=== PATIENT | female | born 1945 | race Caucasian/White ===

== ENCOUNTER 2019-06-09 18:50 | Observation (INO) | payer MEDICARE, OTHER ==
[~2019-06-09] VITALS: Ht 157.5 cm; Wt 73.0 kg
--- NOTE | 2019-06-09 19:09 | REPVR ---
EXAM: CT Head Without Contrast EXAM DATE/TIME: 06/09/2019 6:57 PM CLINICAL HISTORY: 74 years old, female; Speech disturbance; Slurred speech; Additional info: CVA - nursing interventions must not delay CT TECHNIQUE: Imaging protocol: Computed tomography images of the head without contrast. Radiation optimization: All CT scans at this facility use at least one of these dose optimization techniques: automated exposure control; mA and/or kV adjustment per patient size (includes targeted exams where dose is matched to clinical indication); or iterative reconstruction. Other technique: STROKE PROTOCOL was implemented. COMPARISON: No relevant prior studies available. FINDINGS: Brain: No intracranial mass, mass effect or midline shift. No acute intracranial hemorrhage. No CT evidence of acute cortical infarct. Ventricles: Ventricles, cisterns, and sulci are normal in size for age. Bones/joints: No calvarial fracture or destructive process. Sinuses: Imaged paranasal sinuses are clear. Mastoid air cells: Mastoid air cells are normally aerated. Orbits: Imaged orbits are unremarkable. Soft tissues: No focal extracranial soft tissue swelling. IMPRESSION: No acute or concerning focal intracranial abnormality. ASSESSMENT: ASPECTS (Eva Stroke Program Early CT Score) is 10 Electronically signed by: Lev Tejeda On 06/09/2019 19:08:28 PM
[2019-06-09 19:31] LABS: BASO # 0.1 10^3/uL (0.0-0.2); BASO % 0.6 % (0.0-1.0); EOS # 0.2 10^3/uL (0.0-0.50); EOS % 2.2 % (0.0-3.0); HEMATOCRIT 35.9 % (36.0-47.0); HEMOGLOBIN 12.3 g/dl (12.0-15.5); LYMPH # 2.3 10^3/uL (1.5-4.5); LYMPH % 29.5 % (24.0-44.0); MEAN CORPUSCULAR HEMOGLOBIN 31.7 pg (27.0-33.0); MEAN CORPUSCULAR HGB CONC 34.3 g/dl (32.0-36.5); MEAN CORPUSCULAR VOLUME 92.5 fl (80.0-96.0); MONO # 0.9 10^3/uL (0.0-0.8); MONO % 10.9 % (0.0-5.0); NEUTROPHILS # 4.4 10^3/uL (1.8-7.7); NEUTROPHILS % 56.5 % (36.0-66.0); PLATELET COUNT, AUTOMATED 312 10^3/uL (150-450); RED BLOOD COUNT 3.88 10^6/uL (4.00-5.40); WHITE BLOOD COUNT 7.8 10^3/uL (4.0-10.0)
[2019-06-09 19:43] LABS: INR 0.94; PROTHROMBIN TIME 12.3 SECONDS (11.8-14.0)
[2019-06-09 19:44] LABS: PARTIAL THROMBOPLASTIN TIME 31.6 SECONDS (25.0-38.4)
--- NOTE | 2019-06-09 19:46 | REP ---
Portable chest, 07:08 p.m., single frontal view: Comparison is the PA and lateral chest of 05/21/2013. The lung mishra are clear. The cardiac size is normal. The amol, mediastinum, and skeletal structures are unremarkable. Impression: Negative portable chest. There is no interval change. Electronically Signed by Lucio Castillo MD 06/09/2019 07:37 P
[2019-06-09 20:02] LABS: BLOOD UREA NITROGEN 18 MG/DL (7-18); CALCIUM LEVEL 8.9 MG/DL (8.8-10.2); CARBON DIOXIDE LEVEL 28 MEQ/L (21-32); CHLORIDE LEVEL 104 MEQ/L (98-107); CK-MB VALUE MASS 1.6 NG/ML (<3.6); CPK CREATINE PHOSPHOKINASE 104 U/L (26-192); CREATININE FOR GFR 1.06 MG/DL (0.55-1.30); GLOMERULAR FILTRATION RATE 53.8 (>39); GLUCOSE, FASTING 103 MG/DL (70-100); MB/CK RELATIVE INDEX 1.54 (< OR =4); POTASSIUM SERUM 3.9 MEQ/L (3.5-5.1); SODIUM LEVEL 138 MEQ/L (136-145); TROPONIN I < 0.02 NG/ML (< 0.10)
[2019-06-09] MEDS ORDERED: ZOCO80TA PO (20:02)
[2019-06-09] MEDS ORDERED: LOSA100T5 PO (20:02)
[2019-06-09] MEDS ORDERED: KP BTAB PO (20:02)
[2019-06-09] MEDS ORDERED: CALC1TAB26 PO (20:02)
[2019-06-09] MEDS ORDERED: CVS250TA3 PO (20:02)
[2019-06-09] MEDS ORDERED: MULTCAP PO (20:02)
[2019-06-09] MEDS ORDERED: FISH1000 PO (20:02)
[2019-06-09] MEDS ORDERED: ASPI81TA85 PO (20:02)
[2019-06-09] MEDS ORDERED: OSTETAB2 PO (20:02)
--- NOTE | 2019-06-09 22:24 | REPVR ---
EXAM: MR Head Without Contrast EXAM DATE/TIME: 06/09/2019 9:55 PM CLINICAL HISTORY: 74 years old, female; Weakness, facial; Additional info: Aphasia, new onset headache TECHNIQUE: Imaging protocol: MR of the head without contrast. COMPARISON: MRA BRAIN W/O CONTRAST 06/09/2019 9:17 PM FINDINGS: No abnormal restriction of diffusion to indicate acute CVA. Midline structures and cerebellar tonsillar position appear normal. Ventricles, cisterns and sulci are symmetric and normal for age. No intracranial mass, midline shift or abnormal extra-axial fluid. No acute intracranial hemorrhage or hemosiderin deposition. Mild pattern of increased T2 and flair signal in supratentorial white matter. Optic chiasm and pituitary infundibulum appear normal. Normal vascular flow voids in major intracranial arteries and dural venous sinuses. Paranasal sinuses are clear. Mastoid air cells are normally aerated. Optic globes and orbits are unremarkable. IMPRESSION: No acute intracranial abnormality. Mild atrophy and mild white matter changes most suggestive of chronic microangiopathic disease Electronically signed by: Lev Tejeda On 06/09/2019 22:24:33 PM
--- NOTE | 2019-06-09 22:26 | REPVR ---
EXAM: MR Angiogram Head Without Contrast, Arteries EXAM DATE/TIME: 06/09/2019 9:55 PM CLINICAL HISTORY: 74 years old, female; Headache; Additional info: Aphasia, new onset headache TECHNIQUE: Imaging protocol: MR angiogram head without contrast. Exam focused on the arteries. COMPARISON: CT Head without contrast 06/09/2019 6:57 PM FINDINGS: Anterior circulation: Normal flow signal and luminal caliber in the petrous, cavernous and supraclinoid internal carotid arteries. Normal appearance of the anterior cerebral artery branches and middle cerebral artery branches through the MCA trifurcations. No occlusion, high-grade focal stenosis or dissection. No aneurysm. Posterior circulation: Normal distal vertebral arteries, with patent normal caliber basilar artery, and normal superior cerebellar and posterior cerebral arteries. No occlusion, high-grade stenosis or aneurysm. Diminutive right P1 segment. Normal caliber right posterior cerebral artery is supplied by a large right posterior communicating artery IMPRESSION: Unremarkable MR angiogram of the [place] and intracranial vertebrobasilar system. Electronically signed by: Lev Tejeda On 06/09/2019 22:25:53 PM
[2019-06-09] MEDS ORDERED: IBUP200T45 PO (23:21)
[2019-06-09] MEDS ORDERED: MAGN400C PO (23:21)
[2019-06-10] MEDS ORDERED: ACETAMINOPHEN TAB 650MG DOSE (2X325MG) PO PRN
[2019-06-10] MEDS ORDERED: MAALOX 30 ML SUSP *UDC PO PRN
[2019-06-10] MEDS ORDERED: MOM 30ML SUSPENSION UDC PO PRN
[2019-06-10] MEDS ORDERED: ASPIRIN 325 MG TAB PO ONE (00:15)
--- NOTE | 2019-06-10 00:17 | HPEPDOC ---
General Date of Admission 06/10/19 Date of Service: Jun 10, 2019 Attending Physician: NIKIA RAYGOZA MD Chief Complaint The patient is a 74-year-old female admitted with a reason for visit of Head Radha n. Source: Patient Exam Limitations: No limitations Timing/Duration: This evening Severity: Other (as of) Associated Symptoms: Headaches History of Present Illness 74 years old, healthy, pleasant white female with past medical history of hypertension, status post parathyroidectomy was in her usual state of health when she suddenly developed difficulty speaking at 4:30 PM yesterday, as per patient, she was able to think what she was saying, but she was unable to express it and this lasted for about 30 minutes with the progressive resolution spontaneously. Patient also complaining of headache during that period, which is globular, not associated with any other symptoms such as rhinorrhea, lacrimation, etc. While in ED, patient's symptoms have completely resolved. She does not have a history of migraine headaches are CVA in the past, most likely the cause of her symptom is TIA. Patient will be admitted to PCU for TIA workup. Home Medications Scheduled Aspirin (Aspir 81) 81 Mg Tablet.dr, 81 MG PO DAILY, (Reported) Calcium Carbonate/Vitamin D3 (Calcium 600-Vit D3 800 Tablet) 1 Each Tablet, 1 TAB PO DAILY, (Reported) Glucosam/Vic-Msm1/C/Fortunato/Bosw (Osteo Bi-Flex Caplet) 1 Each Tablet, 2 TAB PO DAILY, (Reported) Losartan/Hydrochlorothiazide (Losartan-Hctz 100-25 mg Tab) 1 Each Tablet, 1 TAB PO DAILY, (Reported) Magnesium Oxide (Magnesium) 400 Mg Capsule, 400 MG PO QPM, (Reported) TAKES WITH SUPPER Multivitamin (Multivitamins) 1 Each Capsule, 1 CAP PO DAILY, (Reported) [place]-3 Fatty Acids/Fish Oil (Fish Oil 1,000 mg Capsule) 1 Each Capsule, 1,000 MG PO DAILY, (Reported) Simvastatin (Zocor) 80 Mg Tablet, 80 MG PO QPM, (Reported) TAKES WITH SUPPER Vit B1 Mn/B2/B3/B5/B6/B12/C/FA (B Complex with Vitamin C Tab) 1 Each Tablet, 1 TAB PO DAILY, (Reported) Scheduled PRN Ibuprofen (Ibu-200) 200 Mg Tablet, 200 MG PO Q6H PRN for PAIN, (Reported) Allergies Coded Allergies: No Known Allergies (Unverified , 06/09/19) Past Medical History Medical History Hypertension Surgical History Parathyroidectomy and 1 Family History Mom has a history of colon cancer Social History * Smoker: Denies Alcohol: Denies Drugs: denies A-FIB/CHADSVASC A-FIB History Current/History of A-Fib/PAF?: No Review of Systems Constitutional: Denies: Chills, Fever, Malaise, Night Sweats, Weakness, Fatigue, Weight Loss, Lethargy, Other Eyes: Denies: Pain, Vision change, Conjunctivae inflammation, Eyelid inflammation, Redness, Other ENT: Denies: Head Aches, Ear Pain, Dysphagia, Sinus Congestion, Post Nasal Drip, Sore Throat, Epistaxis, Other Symptoms Skin: Denies: Rash, Lesions, Jaundice, Bruising, Itching, Dry, Breakdown, Nail Changes, Other Pulmonary: Denies: Dyspnea, Cough, Pleuritic Chest Pain, Other Symptoms Cardiovascular: Denies: Chest Pain, Palpitations, Orthopnea, Paroxysmal Noc. Dyspnea, Edema, Lt Headedness, Other Symptoms Gastrointestinal: Denies: Nausea, Vomiting, Abdominal Pain, Diarrhea, Constipation, Melena, Hematochezia, Other Symptoms Genitourinary: Denies: Dysuria, Frequency, Incontinence, Hematuria, Retention, Other Symptoms Hematologic: Denies: Bruising, Bleeding Excessively, Petecchia, Purpura, Enlarged Lymph Nodes, Other Hematologic Endocrine: Denies: Polydipsia, Polyphagia, Polyuria, Heat Intolerance, Cold Intolerance, Other Endocrine Sx Musculoskeletal: Denies: Neck Pain, Back Pain, Shoulder Pain, Arm Pain, Hand Pain, Leg Pain, Foot Pain, Joint Pain, Muscle Pain, Spasms, Other Symptoms Neurological: Reports: Other Symptoms (difficulty speaking) Psych: Denies: Mood Normal, Anxiety, Depression, Memory Issues, Thoughts of Self Harm, Anger, Thoughts of Harming Other, Other Psych Physical Examination General Exam: Positive: Alert, Cooperative Eye Exam: Positive: PERRLA, Conjunctiva & lids normal ENT Exam: Positive: Atraumatic Neck Exam: Positive: Supple Chest Exam: Positive: Clear to auscultation, Normal air movement Heart Exam: Positive: Rate Normal, Normal S1, Normal S2 Abdomen Exam: Positive: Normal bowel sounds, Soft Extremity Exam: Positive: Normal pulses Skin Exam: Positive: Nl turgor and temperature Neuro Exam: Positive: Normal Speech, Strength at 5/5 X4 ext, Sensation Intact, Cranial Nerves 3-12 NL Psych Exam: Positive: Mental status NL, Mood NL, Oriented x 3 Vital Signs Vital Signs Date Time Temp Pulse Resp B/P (MAP) Pulse Ox O2 Delivery O2 Flow Rate FiO2 06/09/19 22:15 69 147/67 (93) 97 Room Air 06/09/19 20:35 15 06/09/19 18:50 99.7 Laboratory Data Labs 24H Laboratory Tests 2 06/09/19 19:17: Bedside Glucose (Misc Panel) 113H 06/09/19 19:25: Immature Granulocyte % (Auto) 0.3, White Blood Count 7.8, Red Blood Count 3.88L, Hemoglobin 12.3, Hematocrit 35.9L, Mean Corpuscular Volume 92.5, Mean Corpuscular Hemoglobin 31.7, Mean Corpuscular Hemoglobin Concent 34.3, Red Cell Distribution Width 13.1, Platelet Count 312, Neutrophils (%) (Auto) 56.5, Lymphocytes (%) (Auto) 29.5, Monocytes (%) (Auto) 10.9H, Eosinophils (%) (Auto) 2.2, Basophils (%) (Auto) 0.6, Neutrophils # (Auto) 4.4, Lymphocytes # (Auto) 2.3, Monocytes # (Auto) 0.9H, Eosinophils # (Auto) 0.2, Basophils # (Auto) 0.1, Nucleated Red Blood Cells % (auto) 0.0, Prothrombin Time 12.3, Prothromb Time International Ratio 0.94, Activated Partial Thromboplast Time 31.6, Anion Gap 6L, Glomerular Filtration Rate 53.8, Blood Urea Nitrogen 18, Creatinine 1.06, Sodium Level 138, Potassium Level 3.9, Chloride Level 104, Carbon Dioxide Level 28, Calcium Level 8.9, Total Creatine Kinase 104, Creatine Kinase MB 1.6, Creatine Kinase MB Relative Index 1.54, Troponin I < 0.02 CBC/BMP Laboratory Tests 06/09/19 19:25 Red Blood Count 3.88 L, Mean Corpuscular Volume 92.5, Mean Corpuscular Hemoglobin 31.7, Mean Corpuscular Hemoglobin Concent 34.3, Red Cell Distribution Width 13.1, Neutrophils (%) (Auto) 56.5, Lymphocytes (%) (Auto) 29.5, Monocytes (%) (Auto) 10.9 H, Eosinophils (%) (Auto) 2.2, Basophils (%) (Auto) 0.6, Neutrophils # (Auto) 4.4, Lymphocytes # (Auto) 2.3, Monocytes # (Auto) 0.9 H, Eosinophils # (Auto) 0.2, Basophils # (Auto) 0.1, Calcium Level 8.9, Total Creatine Kinase 104 Problems (1) TIA (transient ischemic attack) Status: Acute Problem Text: 73 years old pleasant white female with past medical history of hypertension only presented with expressive aphasia lasting for 30 minutes with no residual deficit, most likely TIA or could be a variation of migraine as patient did express headache during that period. Denies any history of migraine headache, any neurological symptoms, peripheral neuropathy, etc. Patient will be admitted to PCU for observation Cardiac monitoring Saline lock , Aspirin 325 mg by mouth 1 dose now then by mouth daily Continue statins Blood pressure control with present home meds , Tylenol when necessary Bilateral carotid Dopplers MRI of the brain without contrast Echocardiogram Lipid profile has been ordered as well DVT prophylaxis with Lovenox (2) HTN (hypertension) Problem Text: Continue home meds of losartan and hydrochlorothiazide Under control with present meds and will continue the same Plan / VTE VTE Prophylaxis Ordered?: Yes NIKIA RAYGOZA MD Jun 10, 2019 00:17
--- NOTE | 2019-06-10 01:05 | REPVR ---
EXAM: US Duplex Bilateral Extracranial Arteries EXAM DATE/TIME: 06/10/2019 12:44 AM CLINICAL HISTORY: 74 years old, female; Other: TIA TECHNIQUE: Imaging protocol: Real-time Duplex ultrasound scan of the Bilateral carotid and vertebral arteries combining trujillo scale, color Doppler and spectral waveform analysis. COMPARISON: CT Head without contrast 06/09/2019 6:57 PM FINDINGS: Visualized portions of the bilateral common carotid, internal carotid, and external carotid arteries reveals no occlusion or dissection flap. No significant atherosclerotic plaque. Doppler evaluation shows normal flow directionality. Peak systolic velocities (in cm/sec) are as follows: Right CCA: 72 Right ICA: 61 Right ECA: 70 Right I/C ratio: 0.5 Right Vertebral: Left CCA: 68 Left ICA: 44 Left ECA: 44 Left I/C ratio: 0.65 Left Vertebral: IMPRESSION: No significant plaque and no stenosis. Electronically signed by: Lev Tejeda On 06/10/2019 01:04:57 AM
[2019-06-10 02:30] VITALS: BP 170/80
[2019-06-10 02:44] LABS: LIPASE 138 U/L (73-393)
[2019-06-10 04:00] VITALS: BP 140/68
[2019-06-10] MEDS ORDERED: ENOXAPARIN 40 MG/0.4 ML SYRINGE (J1650) SC SCH (06:00)
[2019-06-10 08:00] VITALS: BP 141/69
[2019-06-10 08:29] VITALS: BP 141/69
[2019-06-10 08:36] LABS: CHOLESTEROL RISK RATIO 3.644 (<5)
[2019-06-10] MEDS ORDERED: DOCUSATE SODIUM 100 MG CAP PO SCH (09:00)
[2019-06-10] MEDS ORDERED: hydroCHLOROthiazide 25 MG TAB PO SCH (09:00)
[2019-06-10] MEDS ORDERED: LOSARTAN 50 MG TAB PO SCH (09:00)
[2019-06-10] MEDS ORDERED: ASPIRIN 325 MG TAB PO SCH (09:00)
[2019-06-10 12:00] VITALS: BP 149/71
--- NOTE | 2019-06-10 14:25 | ECHO ---
DATE OF PROCEDURE: 06/10/2019 REFERRING PHYSICIAN: Dr. Vinay Palomino INDICATION: Transient ischemic attack (TIA). Height 157 cm, weight 73 kg. DIMENSIONS: IVS: 1.1 LV: 5.0 LVPW: 1.0 LA: 3.4 Aorta: 3.0 IVC: 1.8 Mitral E wave velocity: 57 A wave: 75 E prime septal: 4.8 E prime lateral: 7.3 FINDINGS: The study is of acceptable technical quality. Left ventricle is normal size and overall has preserved systolic function, I estimate left ventricular ejection fraction (LVEF) around 60%. Right ventricle also appears to have normal size and systolic function. Both atria appear at least mildly enlarged. Aortic, mitral, tricuspid and pulmonic valves were all reasonably well seen and appear normal for patient's age. No pericardial effusion is noted. Inferior vena cava is normal size. Aortic root and aortic arch appear normal. Limited views of abdominal aorta also appear normal. Doppler interrogation reveals competent aortic valve. There is mild mitral and mild tricuspid insufficiency. Calculated pulmonary artery pressure is within normal limits. Trace pulmonic insufficiency is also seen. Mitral inflow pattern and tissue Doppler imaging of mitral annulus revealed grade 1 diastolic dysfunction. CONCLUSIONS: 1. Study is of acceptable technical quality. 2. Normal left ventricular (LV) size and systolic function. Grade 1 diastolic dysfunction. 3. No significant valvular disease. 4. Normal central venous pressure and normal pulmonary artery pressure. 5. No obvious abnormality to explain TIA. COMMENT: Subacute bacterial endocarditis (SBE) prophylaxis is not recommended.
[2019-06-10 16:00] VITALS: BP 130/64
[2019-06-10] MEDS ORDERED: ASPI-1 PO (16:52)
--- NOTE | 2019-06-10 17:29 | DS.PDOC ---
Discharge Summary General Date of Admission Jun 09, 2019 at 18:51 Date of Discharge 06/10/19 Attending Physician: MARTIN ALBERTO MD Discharge Summary DISCHARGE DIAGNOSIS: TIA SECONDARY DIAGNOSIS: 1. Hyperlipidemia 2. HTN 3. Grade 1 diastolic dysfunction PROCEDURES PERFORMED DURING STAY: transthoracic echo CONSULTANTS: none HOSPITAL COURSE: 74-year-old female came into ER complaining of difficulty finding her words. She states she was able to think of the words and what she wanted to say, however was unable to express it. This came on suddenly yesterday around 4:30 PM while starting to have dinner. She then attempted to communicate to her the typing, however she was still unable to relay her thoughts via motor function. She denies having any episodes like this in the past. No previous cardiac, neuro, or psych/cognitive history. She reports this lasted for about half hour and then spontaneously resolved. She came to get further evaluated. Imaging was all negative. She felt like her normal self during the entire hospitalization and requested to leave. Neuro checks were negative. Her baby aspirin dose was increased to full 325 mg, and she is to resume her simvastatin 80 mg. At time of discharge, this was discussed with her at bedside with her and nurse in the room. Patient was also informed of her grade 1 diastolic dysfunction from echo and to limit her fluid intake. She was advised to schedule an appointment with neurology and follow-up with her PCP within the week. DISCHARGE MEDICATIONS: Please see below. ALLERGIES: Please see below. SUBJECTIVE: Patient resting comfy, requesting to go home. Feeling well and back to her baseline. No paresthesia of difficulty word finding. Otherwise patient denies chest pain, shortness, breath, nausea, vomiting, fevers, chills OBJECTIVE: PHYSICAL EXAMINATION: VITAL SIGNS: Please see below. GENERAL: Pleasant, NAD, A&Ox3, sitting up in bed awake alert oriented speaking in complete sentences no acute distress HEENT: Moist mucous membranes no elevation and CVP CARDIOVASCULAR: S1 S2 regular no additional heart sounds appreciated. RESPIRATORY: Clear to auscultation bilaterally. ABDOMINAL: Bowel sounds present abdomen soft and non-tender EXTREMITIES: No clubbing, cyanosis, edema NEUROLOGICAL: Spontaneously moves all 4 extremities cranial 2 through 12 grossly intact, no gross focal deficits appreciated. Motor & sensation intact, no slurred speech or expressive aphasia PSYCHOLOGICAL: Appropriate LABORATORY DATA, MICROBIOLOGY: Please see below. IMAGING STUDIES: * 06/09/[address]: No acute or concerning focal intracranial abnormality. * 06/09/2019 CXR: Negative portable chest. There is no interval change. * 06/09/2019 brain MRI: No acute intracranial abnormality. Mild atrophy and mild white matter changes most suggestive of chronic microangiopathic disease * 06/09/2019 brain MRA:Unremarkable MR angiogram of the [place] and intracranial vertebrobasilar system. * 06/10/2019 carotid ultrasound: No significant plaque and no stenosis. ECHOCARDIOGRAM: 06/10/2019: 1. Study is of acceptable technical quality. 2. Normal left ventricular (LV) size and systolic function. Grade 1 diastolic dysfunction. 3. No significant valvular disease. 4. Normal central venous pressure and normal pulmonary artery pressure. 5. No obvious abnormality to explain TIA. DVT prophylaxis ordered: Lovenox sc DISPOSITION: home DISCHARGE CONDITION: Improved and Stable PROGNOSIS: good FOLLOW UP: pcp 1 week ACTIVITY: As prior to admission DIET: As prior to admission I saw and evaluated the patient. I agree with the findings and plan of care as documented in the documenters note. I spent 45 minutes coordinating this patient's discharge. Vital Signs/I&Os Vital Signs Date Time Temp Pulse Resp B/P (MAP) Pulse Ox O2 Delivery O2 Flow Rate FiO2 06/10/19 16:00 97.5 63 20 130/64 (86) 95 06/10/19 02:15 Room Air I&O- Last 24 Hours up to 6 AM 06/10/19 06:00 Intake Total 0 ml Output Total 900 ml Balance -900 ml Laboratory Data Labs 24H Laboratory Tests 2 06/09/19 19:17: Bedside Glucose (Misc Panel) 113H 06/09/19 19:25: Immature Granulocyte % (Auto) 0.3, White Blood Count 7.8, Red Blood Count 3.88L, Hemoglobin 12.3, Hematocrit 35.9L, Mean Corpuscular Volume 92.5, Mean Corpuscular Hemoglobin 31.7, Mean Corpuscular Hemoglobin Concent 34.3, Red Cell Distribution Width 13.1, Platelet Count 312, Neutrophils (%) (Auto) 56.5, Lymphocytes (%) (Auto) 29.5, Monocytes (%) (Auto) 10.9H, Eosinophils (%) (Auto) 2.2, Basophils (%) (Auto) 0.6, Neutrophils # (Auto) 4.4, Lymphocytes # (Auto) 2.3, Monocytes # (Auto) 0.9H, Eosinophils # (Auto) 0.2, Basophils # (Auto) 0.1, Nucleated Red Blood Cells % (auto) 0.0, Prothrombin Time 12.3, Prothromb Time International Ratio 0.94, Activated Partial Thromboplast Time 31.6, Anion Gap 6L, Glomerular Filtration Rate 53.8, Blood Urea Nitrogen 18, Creatinine 1.06, Sodium Level 138, Potassium Level 3.9, Chloride Level 104, Carbon Dioxide Level 28, Calcium Level 8.9, Total Creatine Kinase 104, Creatine Kinase MB 1.6, Creatine Kinase MB Relative Index 1.54, Troponin I < 0.02, Lipase 138 06/10/19 08:00: Triglycerides Level 160H, LDL Cholesterol 87, Total Cholesterol 164, Non-HDL Cholesterol (LDL + VLDL) 119, Total HDL Cholesterol 45, Cholesterol/HDL Ratio 3.644 CBC/BMP Laboratory Tests 06/09/19 19:25 Red Blood Count 3.88 L, Mean Corpuscular Volume 92.5, Mean Corpuscular Hemoglobin 31.7, Mean Corpuscular Hemoglobin Concent 34.3, Red Cell Distribution Width 13.1, Neutrophils (%) (Auto) 56.5, Lymphocytes (%) (Auto) 29.5, Monocytes (%) (Auto) 10.9 H, Eosinophils (%) (Auto) 2.2, Basophils (%) (Auto) 0.6, Neutr ophils # (Auto) 4.4, Lymphocytes # (Auto) 2.3, Monocytes # (Auto) 0.9 H, Eosinophils # (Auto) 0.2, Basophils # (Auto) 0.1, Calcium Level 8.9, Total Creatine Kinase 104 FSBS Laboratory Tests Test 06/09/19 19:17 Range/Units Bedside Glucose (Misc Panel) 113 83-110 MG/DL Discharge Medications Scheduled Aspirin (Aspirin) 325 Mg Tablet, 325 MG PO DAILY Calcium Carbonate/Vitamin D3 (Calcium 600-Vit D3 800 Tablet) 1 Each Tablet, 1 TAB PO DAILY, (Reported) Glucosam/Vic-Msm1/C/[place]ortun[place]/Bosw (Osteo Bi-Flex Caplet) 1 Each Tablet, 2 TAB PO DAILY, (Reported) Losartan/Hydrochlorothiazide (Losartan-Hctz 100-25 mg Tab) 1 Each Tablet, 1 TAB PO DAILY, (Reported) Magnesium Oxide (Magnesium) 400 Mg Capsule, 400 MG PO QPM, (Reported) TAKES WITH SUPPER Multivitamin (Multivitamins) 1 Each Capsule, 1 CAP PO DAILY, (Reported) [place]-3 Fatty Acids/Fish Oil (Fish Oil 1,000 mg Capsule) 1 Each Capsule, 1,000 MG PO DAILY, (Reported) Simvastatin (Zocor) 80 Mg Tablet, 80 MG PO QPM, (Reported) TAKES WITH SUPPER Vit B1 Mn/B2/B3/B5/B6/B12/C/FA (B Complex with Vitamin C Tab) 1 Each Tablet, 1 TAB PO DAILY, (Reported) Scheduled PRN Ibuprofen (Ibu-200) 200 Mg Tablet, 200 MG PO Q6H PRN for PAIN, (Reported) Allergies Coded Allergies: No Known Allergies (Unverified , 06/09/19) LEROY TAY DO Jun 10, 2019 17:29 MARTIN ALBERTO MD Jun 12, 2019 16:37
[2019-06-10] MEDS ORDERED: SIMVASTATIN 40 MG TAB PO SCH (18:00)
[2019-06-10] MEDS ORDERED: MAGNESIUM OXIDE 400 MG TAB (MAG-OX) PO SCH (18:00)
== END 2019-06-10 18:31 | disposition home or self-care (01) ==
LOC: M ED 18:50 → M ED INP 18:51 → M PCU 06-10 02:36
PROVIDERS: ADMIT Internal Medicine; ATTEND Internal Medicine
DX: G45.9 Transient cerebral ischemic attack, unspecified (principal); I11.9 Hypertensive heart disease without heart failure; E78.49 Other hyperlipidemia; I50.30 Unspecified diastolic (congestive) heart failure; Z79.82 Long term (current) use of aspirin; Z79.899 Other long term (current) drug therapy
CPT/HCPCS: 36415; 70450; 70544; 70551; 71045; 80048; 80061; 82550; 82553; 83690; 84484; 85025; 85610; 85730; 86850; 86900; 86901; 93041; 93306; 93880; 94760; 96372; 99285; G0378; J1650

== ENCOUNTER → 2019-06-15 | Outpatient (REF) | payer MEDICARE, OTHER ==
[~2019-06-15] MED LIST: ASPI-1 PO; ASPI81TA85 PO; CALC1TAB26 PO; CVS250TA3 PO; FISH1000 PO; IBUP200T45 PO; KP BTAB PO; LOSA100T5 PO; MAGN400C PO; MULTCAP PO; OSTETAB2 PO; ZOCO80TA PO
== END ==
LOC: M LAB REF 16:34
PROVIDERS: ATTEND Nurse Practitioner Adult Health
DX: D64.9 Anemia, unspecified (principal)

== ENCOUNTER → 2019-06-30 | Outpatient (REF) | payer MEDICARE, OTHER ==
[2019-07-07 00:08] LABS: ANCA-ATYPICAL <1:20 titer (Neg:<1:20); ANGIOTENSIN 1 CONVERTING ENZYM 25 U/L (14-82); ANTI THROMBIN 3 FUNCT ACTIVITY 144 % (75-135); ANTINUCLEAR ANTIBODIES DIRECT Negative (Negative); CARDIOLIPIN IGA ANTIBODY <9 APL U/mL (0-11); CARDIOLIPIN IGG ANTIBODY <9 GPL U/mL (0-14); CARDIOLIPIN IGM ANTIBODY <9 MPL U/mL (0-12); CYTOPLASMIC NEUTROP AB ANCA-C <1:20 titer (Neg:<1:20); PERINUCLEAR AB ANCA-P <1:20 titer (Neg:<1:20); PROTEIN C FUNCTIONAL ACTIVITY > 199 % (73-180); PROTEIN S FUNCTIONAL ACTIVITY 117 % (63-140)
== END ==
LOC: M LAB REF 12:22
PROVIDERS: ATTEND Family Medicine
DX: G45.9 Transient cerebral ischemic attack, unspecified (principal)

== ENCOUNTER → 2020-01-22 | Outpatient (CLI) | payer MEDICARE, OTHER ==
[~2020-01-22] MED LIST changes: -CVS250TA3 PO; +MAGN250T22 PO
--- NOTE | 2020-01-22 11:52 | REP ---
Left elbow for views: I suspect there is a joint effusion. Mineralization and joint spaces are unremarkable. There is no fracture or dislocation. There are no calcifications or foreign bodies. Impression: Joint effusion, otherwise negative left elbow. Electronically Signed by Lucio Castillo MD 01/22/2020 11:44 A
== END ==
LOC: M WUC 11:16
PROVIDERS: ATTEND Nurse Practitioner Family
DX: M25.422 Effusion, left elbow (principal)

== ENCOUNTER → 2021-08-15 | Outpatient (CLI) | payer MEDICARE, OTHER ==
[~2021-08-15] MED LIST changes: +AMLO1TAB24 PO; -ASPI81TA85 PO; +ASPI81TA86 PO; +HYDR-3490 PO; -IBUP200T45 PO; +IBUP200T46 PO; +LOSA100T50 PO; +ROSU40TA4 PO
== END ==
LOC: M LABSMTC 09:07
PROVIDERS: ATTEND Anesthesiology
DX: Z20.822 Contact with and (suspected) exposure to COVID-19 (principal)

== ENCOUNTER 2021-08-20 08:14 | Day surgery (SDC) | payer MEDICARE, OTHER ==
[~2021-08-20] VITALS: Ht 157.5 cm; Wt 76.2 kg
[~2021-08-20 08:14] MED LIST changes: +IBUP200T45 PO; -IBUP200T46 PO; +NS 1,000 ML IV ONE
[2021-08-20] MEDS ORDERED: propofoL 200 MG/20 ML VIAL As Ordered ONE (09:05)
[2021-08-20] MEDS ORDERED: LIDOCAINE 2% MDV 20ML VIAL As Ordered ONE (09:05)
--- NOTE | 2021-08-20 10:12 | ROOR ---
Patient Name: Vianey Dahl Procedure Date: 08/20/2021 8:49 AM Date of : 1945 Age: 76 Room: [facility] Gender: Female Note Status: Finalized Procedure: Total Colonoscopy to Cecum Indications: Colon cancer screening in patient at increased risk: Colorectal cancer in mother Providers: Martin Elder MD Referring MD: Dylon Rivers MD Requesting Provider: Medicines: Monitored Anesthesia Care Complications: No immediate complications. Procedure: Pre-Anesthesia Assessment: - The heart rate, respiratory rate, oxygen saturations, blood pressure, adequacy of pulmonary ventilation, and response to care were monitored throughout the procedure. The Colonoscope was introduced through the anus and advanced to the cecum, identified by appendiceal orifice and ileocecal valve. The colonoscopy was performed without difficulty. The patient tolerated the procedure well. The quality of the bowel preparation was excellent. Findings: The perianal and digital rectal examinations were normal. Non-bleeding internal hemorrhoids were found during retroflexion. The hemorrhoids were small and Grade I (internal hemorrhoids that do not prolapse). Multiple small and large-mouthed diverticula were found in the recto-sigmoid colon, sigmoid colon and descending colon. The exam was otherwise without abnormality on direct and retroflexion views. Impression: - Non-bleeding internal hemorrhoids. - Diverticulosis in the recto-sigmoid colon, in the sigmoid colon and in the descending colon. - The examination was otherwise normal on direct and retroflexion views. - No specimens collected. - The exam was otherwise normal to the cecum. Recommendation: - Patient has a contact number available for emergencies. The signs and symptoms of potential delayed complications were discussed with the patient. Return to normal activities tomorrow. Written discharge instructions were provided to the patient. - High fiber diet. - Discharge patient to home. - Continue present medications. - Repeat colonoscopy is not recommended due to current age (66 years or older) for screening purposes. - Return to referring physician. - The findings and recommendations were discussed with the patient. Procedure Code(s): --- Professional --- G0105, Colorectal cancer screening; colonoscopy on individual at high risk Diagnosis Code(s): --- Professional --- Z80.0, Family history of malignant neoplasm of digestive organs K64.0, First degree hemorrhoids K57.30, Diverticulosis of large intestine without perforation or abscess without bleeding CPT copyright 2019 [employer]. All rights reserved. The codes documented in this report are preliminary and upon patient's librarian review may be revised to meet current compliance requirements. Martin Elder MD Martin Elder MD 08/20/2021 10:12:14 AM Electronically signed by Martin Elder MD Number of Addenda: 0 Note Initiated On: 08/20/2021 8:49 AM Estimated Blood Loss: Estimated blood loss: none.
[2021-08-20 10:30] VITALS: BP 146/80
[2021-08-20] MEDS ORDERED: LIDOCAINE 2% 100MG/5ML SDV (FOR ANES.) As Ordered ONE (13:26)
== END 2021-08-20 10:41 | disposition home or self-care (01) ==
LOC: M OPP 08:14
PROVIDERS: ATTEND Internal Medicine Gastroenterology
DX: Z12.11 Encounter for screening for malignant neoplasm of colon (principal); Z80.0 Family history of malignant neoplasm of digestive organs; Z83.71 Family history of colonic polyps; K57.30 Diverticulosis of large intestine without perforation or abscess without bleeding; K64.0 First degree hemorrhoids; Z79.899 Other long term (current) drug therapy

== ENCOUNTER → 2022-04-20 | Outpatient (REF) | payer MEDICARE, OTHER ==
[~2022-04-20] MED LIST changes: -IBUP200T45 PO; +IBUP200T46 PO; +LOSA100T45 PO; -LOSA100T50 PO; -NS 1,000 ML IV ONE
== END ==
LOC: M LAB REF 12:24
PROVIDERS: ATTEND Family Medicine
DX: R41.81 Age-related cognitive decline (principal)

== ENCOUNTER → 2022-06-10 | Outpatient (CLI) | payer MEDICARE, OTHER ==
[~2022-06-10] MED LIST changes: +GASTROGRAFIN SOLUTION 30ML (Q9963) As Ordered ONE; +ISOVUE-370 76% 100ML VIAL As Ordered ONE; +MULT-90 PO
== END ==
LOC: M RAD 08:33
PROVIDERS: ATTEND Specialist
DX: R59.9 Enlarged lymph nodes, unspecified (principal); K57.30 Diverticulosis of large intestine without perforation or abscess without bleeding; I70.0 Atherosclerosis of aorta
CPT/HCPCS: 70491; 71260; 74177; Q9963; Q9967

== ENCOUNTER → 2022-08-25 | Outpatient (REF) | payer MEDICARE, OTHER ==
[~2022-08-25] MED LIST changes: -GASTROGRAFIN SOLUTION 30ML (Q9963) As Ordered ONE; -ISOVUE-370 76% 100ML VIAL As Ordered ONE
== END ==
LOC: M LAB REF 12:02
PROVIDERS: ATTEND Family Medicine
DX: M15.9 Polyosteoarthritis, unspecified (principal); M79.672 Pain in left foot

== ENCOUNTER → 2022-11-02 | Outpatient (CLI) | payer MEDICARE, OTHER ==
[~2022-11-02] MED LIST changes: +BLAC1CAP2 PO; +CO Q10CA PO; +OMEG10002 PO; +VITA-243 PO
== END ==
LOC: M PLARAD 10:29
PROVIDERS: ATTEND Nurse Practitioner
DX: C86.6 Primary cutaneous CD30-positive T-cell proliferations (principal)
CPT/HCPCS: 78815; A9552

== ENCOUNTER → 2023-02-03 | Outpatient (CLI) | payer MEDICARE, OTHER ==
[~2023-02-03] MED LIST changes: +[UNRECOGNIZED DRUG - OTHER]
== END ==
LOC: M ONCR 08:55
PROVIDERS: ATTEND General Practice
DX: C84.79 Anaplastic large cell lymphoma, ALK-negative, extranodal and solid organ sites (principal); I10 Essential (primary) hypertension; Z80.3 Family history of malignant neoplasm of breast; Z80.49 Family history of malignant neoplasm of other genital organs; Z79.82 Long term (current) use of aspirin; Z79.899 Other long term (current) drug therapy

== ENCOUNTER → 2024-04-26 | Outpatient (REF) | payer MEDICARE, OTHER ==
[~2024-04-26] MED LIST changes: -LOSA100T45 PO; +LOSA100T46 PO; -ROSU40TA4 PO; +ROSU40TA63 PO
== END ==
LOC: M LAB REF 16:27
PROVIDERS: ATTEND Family Medicine
DX: R10.9 Unspecified abdominal pain (principal)

== ENCOUNTER → 2024-05-15 | Outpatient (CLI) | payer MEDICARE, OTHER ==
[~2024-05-15] MED LIST changes: +GASTROGRAFIN SOLUTION 30ML As Ordered ONE
== END ==
LOC: M RAD 13:38
PROVIDERS: ATTEND Family Medicine
DX: D47.9 Neoplasm of uncertain behavior of lymphoid, hematopoietic and related tissue, unspecified (principal)
CPT/HCPCS: 74176; Q9963

== ENCOUNTER → 2024-07-18 | Outpatient (CLI) | payer MEDICARE, OTHER ==
[~2024-07-18] MED LIST changes: -GASTROGRAFIN SOLUTION 30ML As Ordered ONE; -ROSU40TA63 PO; +ROSU40TA81 PO
[2024-07-18 10:41] LABS: ALBUMIN 3.5 G/DL (3.2-5.2); ALKALINE PHOSPHATASE 65 U/L (46-116); ALT/SGPT 18 U/L (7.0-40); AST/SGOT 15 U/L (<34); BASO % 0.5 % (0.0-1.0); BILIRUBIN,TOTAL 0.5 MG/DL (0.3-1.2); BLOOD UREA NITROGEN 17 MG/DL (9-23); CALCIUM LEVEL 9.7 MG/DL (8.3-10.6); CARBON DIOXIDE LEVEL 27 MMOL/L (20-31); CHLORIDE LEVEL 107 MMOL/L (98-107); CREATININE FOR GFR 0.66 MG/DL (0.55-1.30); EOS # 0.1 10^3/uL (0.0-0.5); EOS % 1.1 % (0.0-3.0); GLOMERULAR FILTRATION RATE > 60.0 (>32); GLUCOSE, FASTING 181 MG/DL (74-106); HEMATOCRIT 38.7 % (36.0-47.0); HEMOGLOBIN 12.8 g/dl (12.0-15.5); LYMPH # 1.3 10^3/uL (1.5-5.0); LYMPH % 15.8 % (24.0-44.0); MEAN CORPUSCULAR HEMOGLOBIN 31.8 pg (27.0-33.0); MEAN CORPUSCULAR HGB CONC 33.1 g/dl (32.0-36.5); MEAN CORPUSCULAR VOLUME 96.3 fl (80.0-96.0); MONO # 0.5 10^3/uL (0.0-0.8); MONO % 5.9 % (2.0-8.0); NEUTROPHILS # 6.1 10^3/uL (1.5-8.5); NEUTROPHILS % 76.4 % (36.0-66.0); PLATELET COUNT, AUTOMATED 335 10^3/uL (150-450); POTASSIUM SERUM 3.4 MMOL/L (3.5-5.1); RED BLOOD COUNT 4.02 10^6/uL (4.00-5.40); RHEUMATOID FACTOR QUANT < 3.5 IU/ML (<14); SODIUM LEVEL 141 MMOL/L (136-145); TOTAL PROTEIN 6.8 G/DL (5.7-8.2)
[2024-07-18 10:42] LABS: VITAMIN B12 LEVEL 753 PG/ML (211-911)
[2024-07-18 10:43] LABS: FOLATE > 24.0 NG/ML (>5.4); THYROID STIMULATING HORMONE 1.811 uIU/ML (0.55-4.78); TOTAL 25(OH) VITAMIN D 51.2 NG/ML (20.0-100.0)
[2024-07-18 10:54] LABS: ERYTHROCYTE SEDIMENTATION RATE 20 mm/hr (0-30)
[2024-07-18 11:01] LABS: HEMOGLOBIN A1c 5.6 % (4.0-6.0)
[2024-07-19 13:02] LABS: ANA SCREEN, IFA NEGATIVE (NEGATIVE)
[2024-07-21 20:37] LABS: VITAMIN E(ALPHA TOCOPHEROL) 10.2 mg/L (5.7-19.9); VITAMIN E(GAMMA TOCOPHEROL) < 1.0 mg/L (<=4.3)
[2024-07-23 16:48] LABS: VITAMIN B1 LEVEL WHOLE BLOOD 169 nmol/L (78-185)
[2024-07-24 08:07] LABS: VITAMIN B6,PYRIDOXAL PHOSPHATE 27.2 ng/mL (2.1-21.7)
== END ==
LOC: M WUC 08:11
PROVIDERS: ATTEND Psychiatry & Neurology Neurology
DX: R41.89 Other symptoms and signs involving cognitive functions and awareness (principal); Z79.899 Other long term (current) drug therapy